=== PATIENT | male | born 1975 | race Caucasian/White ===

== ENCOUNTER 2023-08-22 07:28 | Outpatient (CLI) | payer BC, SELFPAY ==
--- NOTE | ~2023-08-22 | MR_ITS ---
EXAMINATION: MR cervical spine wo con DATE: 08/22/2023 08:08 INDICATION: Spondylosis without myelopathy or radiculopathy. Neck and shoulder and arm pain. TECHNIQUE: Magnetic resonance imaging (MRI) of the cervical spine was performed without intravenous c ontrast. COMPARISON: Cervical spine radiographs 08/06/2023 FINDINGS: There is kyphosis of cervical spine. Vertebral body heights are normal. There is mildly dec reased disc height at C3-C4 and moderately decreased disc height at C4-C5 and C5-C6. The spinal cord signal intensity is normal. The following disc levels are specifically discussed: C2-C3: The disc does not extend beyond the endplate margin. There is no uncovertebral joint osteoarth ritis. There is mild right and moderate left facet joint osteoarthritis. There is no neural foraminal stenosis. There is no central canal stenosis. C3-C4: The disc is bulging. There is mild bilateral uncovertebral joint osteoarthritis. There is mild bilateral facet joint osteoarthritis. There is mild bilateral neural foraminal stenosis. There is mi ld central canal stenosis. C4-C5: The disc is bulging. There is severe right and moderate left uncovertebral joint osteoarthriti s. There is mild bilateral facet joint osteoarthritis. There is mild bilateral neural foraminal steno sis. There is mild central canal stenosis with ventral indentation of the spinal cord. C5-C6: The disc is bulging. There is severe bilateral uncovertebral joint osteoarthritis. There is mi ld bilateral facet joint osteoarthritis. There is mild right and moderate left neural foraminal steno sis. There is mild central canal stenosis. C6-C7: The disc is bulging. There is mild bilateral uncovertebral joint osteoarthritis. There is mode rate bilateral facet joint osteoarthritis. There is mild left neural foraminal stenosis. There is no central canal stenosis. C7-T1: The disc does not extend beyond the endplate margin. There is no uncovertebral joint osteoarth ritis. There is severe bilateral facet joint osteoarthritis. There is mild bilateral neural foraminal stenosis. There is no central canal stenosis. IMPRESSION: 1. Moderate cervical spondylosis. Reviewed, dictated and finalized at location E.
== END 2023-08-22 07:29 | disposition home or self-care (01) ==
PROVIDERS: PCP Nurse Practitioner Family; Visit Provider Nurse Practitioner Family
DX: M47.812 Spondylosis without myelopathy or radiculopathy, cervical region (principal)
CPT/HCPCS: 72141

== ENCOUNTER 2023-12-07 08:00 | Outpatient (RCR) | payer BC, SELFPAY ==
--- NOTE | 2023-09-08 16:36 | PTOPEVAL1 ---
Assessment and note entered by Dina Ritchie, PT Evaluation Information Assessment Status Evaluation Diagnosis cervical radiculopathy (right) Therapy Conditions abnormal postures stiffness cervical spine abnormal postures cervicalgia Onset 08/01/23 Subjective Information Pt reports 08/01/23 right shoulder and right arm pain started. Woke up that morning turned to look at and stated I slept wrong . Usually would go away but this one did not. Reports has neck issues based on MRI and x-rays two days prior had 4-5 inches of snow, used four alejandre with snow plow, hooked up snow plow 120x30 ft. Had a lot of turning to the right, then went in circles to the right. Had a baby shower Wednesday and was fine both days. By the next Wed/ was in so much pain called [facility] but couldn't get in, got into a chiro right away and did a consultation, Wednesday started first treatment. Came to [facility] Wednesday afternoon, took more x-rays, steroid pills, steroid shot, muscle relaxer. Started chiro 2x weekly and was back to doc couple times due to pain in shoulder and arm was unreal . Didn't feel it in the neck but in the shoulder and arm. Was able to get and MRI and all doctors have copies. Steroid pack ended two days ago. Pain pills helped relax him. Tried Gabapentin from and didn't notice a difference but only took one. X-rays and MRI show multiple level arthritis, pt reports MRI shows multiple levels of bulging and herniated discs. 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 Tried to modify seat even in pick- up truck. Kept working and taking pills to try to manage pain, some days were half days and some were modified. since starting pills pain had been steadily reducing, still taking the muscle relaxers 4x daily. Also since starting meds, feels more in the neck and now the neck feels weird or swelled
--- NOTE | 2023-09-08 16:37 | OPREHPOC ---
Outpatient Therapy Plan of Care This is a Multidisciplinary Plan of Care that may contain components documented by all disciplines (PT, OT, and ST.) PT Problem 1 PT Problem #1 Knowledge Deficit PT Goal 1 Goal Pt will be independent in HEP Pt will verbalize understanding of diagnosis and prognosis Target Visit 10 PT Problem 2 PT Problem #2 Pain PT Goal 1 Goal Pt will report centralization of pain to cervical spine Target Visit 10 PT Goal 2 Goal Pt will report greatest pain level at 3/10 or less to improve ADLs and activities Target Visit 24 PT Problem 3 PT Problem #3 Impaired Range of Motion PT Goal 1 Goal Pt will demo ROM cervical spine in right rotation equal to left rotation Target Visit 10 PT Goal 2 Goal Pt will show active ROM cervical spine within 75% of normative values Target Visit 24
--- NOTE | 2023-11-23 08:30 | PCPTNOTE ---
Patient called & cancelled scheduled appointment this date due to being called into work
--- NOTE | 2023-12-07 14:59 | PTOPDC ---
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 Pt states he believes the previous injection on November 29 really helped and hopes the next injection will completely resolve pain. He states he does his stretches occasionally but has not had to as often due to decreased pain. He notes that the pain going down the arm is almost gone and less frequent and less intense. Reported Pain Level Pain Score 0: Self Report Assessment PT Clinical Summary Pt reports to physical therapy for reassessment. Pt states he is feeling much better and believes the last injection has helped and he has one more scheduled. 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 Cervical ROM was tested and was WNL in all planes, with pain free motion. Upon palpation trigger points were found in R upper trapezius and were able to be resolved with manual therapy. Pt was educated on continued stretching program and use of soft tissue tissues such as a theracane to address trigger points in R upper trapezius and Levator. Pt provides verbal understanding of all education provided and hopes that his next injection will completely resolve neck and arm pain. Thus patient is being discharged from therapy at this time. Plan of Care PT Services Indicated No
== END 2023-12-07 15:21 | disposition home or self-care (01) ==
LOC: ANHHIPT 08:00
PROVIDERS: PCP Nurse Practitioner Family
DX: M54.12 Radiculopathy, cervical region (principal)
CPT/HCPCS: 97012; 97014; 97035; 97110; 97112; 97140; 97162; 97530; 97750; G0283